=== PATIENT | female | born 1980 | race Caucasian/White ===

== ENCOUNTER 2017-12-29 07:36 | Inpatient (IN) | payer MEDICAID ==
[2017-12-29] MEDS ORDERED: METHYLERGONOVINE 0.2 MG INJ IM ×2 (08:00→10:30)
[2017-12-29] MEDS ORDERED: OXYTOCIN 30 UNITS/LR 500 ML IV ×2 (08:00→10:30)
[2017-12-29] MEDS ORDERED: MISOPROSTOL 200 MCG TAB PR ×2 (08:00→10:30)
[2017-12-29] MEDS ORDERED: CARBOPROST 250 MCG INJ IM ×2 (08:00→10:30)
[2017-12-29 08:14] LABS: ADD MAN DIFF? NO
[2017-12-29] MEDS: LACTATED RINGER'S 1,000 ML IV (08:15)
[2017-12-29 08:21] LABS: WHITE BLOOD COUNT 6.6 10^3/ul (4.8-10.8)
[2017-12-29 08:21] LABS: BASOPHILS % 0.3 % (0.0-2.0); EOSINOPHILS % 0.6 % (0.0-7.0); HEMATOCRIT 37.6 % (37.0-47.0); HEMOGLOBIN 12.8 g/dl (12.0-16.0); LYMPHOCYTES # 2.1 10^3/ul (0.8-2.9); MEAN CORPUSCULAR HEMOGLOBIN 30.8 pg (29.0-33.0); MEAN CORPUSCULAR VOLUME 90.4 fl (82.0-101.0); MEAN PLATELET VOLUME 12.2 fl (7.4-10.4); MONOCYTE # 0.5 10^3/ul (0.3-0.9); MONOCYTES % 8.2 % (0.0-11.0); NEUTROPHIL # 3.9 10^3/ul (1.6-7.5); NEUTROPHILS % 59.4 % (39.0-77.0); PLATELET COUNT 136 10^3/UL (140-415); RED BLOOD COUNT 4.16 10^6/ul (4.20-5.40)
[2017-12-29] MEDS ORDERED: METOCLOPRAMIDE 10 MG INJ IM (08:30)
[2017-12-29] MEDS: ONDANSETRON 4 MG INJ IV (08:42)
[2017-12-29] MEDS: FAMOTIDINE 20 MG INJ IV (08:42)
[2017-12-29 08:46] LABS: INR 0.88; PT RATIO 0.9
[2017-12-29 08:47] LABS: PARTIAL THROMBOPLASTIN TIME 26.5 Sec (25.0-35.0)
[2017-12-29 09:17] LABS: HEPATITIS B SURFACE ANTIGEN NEGATIVE (NEGATIVE)
[2017-12-29] MEDS ORDERED: morphine SULFATE/PF (10 MG/10 ML) INJ (09:19)
[2017-12-29] MEDS ORDERED: BUPIVACAINE 0.75%/DEXT (SPINAL) 2 ML INJ (09:19)
[2017-12-29] MEDS ORDERED: EPINEPHrine 1 MG INJ (09:19)
[2017-12-29] MEDS ORDERED: OXYTOCIN 10 UNIT INJ (09:19)
[2017-12-29] MEDS: METOCLOPRAMIDE 10 MG INJ IV (09:20)
[2017-12-29] MEDS: CEFAZOLIN 2 GM/50 ML (PMX) 50 ML IV (11:18)
[2017-12-29] MEDS ORDERED: ZOLPIDEM 5 MG TAB PO (11:30)
[2017-12-29] MEDS ORDERED: FENTAnyl 50 MCG/ML VIAL IV ×2 (11:30)
[2017-12-29] MEDS ORDERED: HYDROmorphONE 0.5 MG/0.5 ML SYG IV ×2 (11:30)
[2017-12-29] MEDS ORDERED: DIPHENHYDRAMINE 50 MG INJ IV ×2 (11:30)
[2017-12-29] MEDS ORDERED: KETOROLAC 30 MG INJ IV (11:30)
[2017-12-29] MEDS ORDERED: NALOXONE (0.4 MG/ML) INJ IV ×3 (11:30)
[2017-12-29] MEDS ORDERED: ONDANSETRON 4 MG INJ IV ×2 (11:30)
[2017-12-29] MEDS ORDERED: HYDROmorphONE 1 MG/5 ML IV SYRINGE IV ×3 (11:30)
[2017-12-29] MEDS: IBUPROFEN 600 MG TAB PO ×2 (12:00→15:07)
[2017-12-29] MEDS: OXYTOCIN 30 UNITS/LR 500 ML IV (12:41)
[2017-12-29] MEDS: LANOLIN 7 GM TUBE TOP (17:31)
[2017-12-29 20:01] LABS: RAPID PLASMA REAGIN NONREACTIVE (NR)
[2017-12-29] MEDS: SENNA/DOCUSATE NA (8.6MG/50MG) TAB PO (21:52)
[2017-12-30] MEDS: LACTATED RINGER'S 1,000 ML IV ×2 (00:22→07:58)
[2017-12-30] MEDS: IBUPROFEN 600 MG TAB PO ×4 (06:00→18:00)
[2017-12-30] MEDS: KETOROLAC 30 MG INJ IV (08:00)
[2017-12-30] MEDS: SENNA/DOCUSATE NA (8.6MG/50MG) TAB PO ×2 (09:51→21:20)
[2017-12-30 10:27] LABS: ADD MAN DIFF? NO
[2017-12-30 10:35] LABS: WHITE BLOOD COUNT 11.2 10^3/ul (4.8-10.8)
[2017-12-30 10:35] LABS: BASOPHILS % 0.2 % (0.0-2.0); EOSINOPHILS % 0.1 % (0.0-7.0); HEMATOCRIT 32.9 % (37.0-47.0); HEMOGLOBIN 11.1 g/dl (12.0-16.0); LYMPHOCYTES # 1.5 10^3/ul (0.8-2.9); LYMPHOCYTES % 13.8 % (15.0-51.0); MEAN CORPUSCULAR HGB CONC 33.7 g/dl (32.0-37.0); MEAN CORPUSCULAR VOLUME 88.9 fl (82.0-101.0); MEAN PLATELET VOLUME 12.1 fl (7.4-10.4); MONOCYTE # 0.8 10^3/ul (0.3-0.9); MONOCYTES % 7.5 % (0.0-11.0); NEUTROPHIL # 8.7 10^3/ul (1.6-7.5); PLATELET COUNT 137 10^3/UL (140-415); RED CELL DISTRIBUTION WIDTH 13.2 % (11.5-14.5)
[2017-12-30] MEDS: OXYCODONE/ACETAMINOPHEN (5/325) TAB PO (21:20)
[2017-12-31] MEDS: IBUPROFEN 600 MG TAB PO ×5 (00:24→23:58)
[2017-12-31] MEDS: FERROUS SULFATE (EC) 325 MG TAB PO ×2 (09:52→21:31)
[2017-12-31] MEDS: SENNA/DOCUSATE NA (8.6MG/50MG) TAB PO ×2 (09:52→21:31)
[2017-12-31] MEDS: OXYCODONE/ACETAMINOPHEN (5/325) TAB PO (21:31)
[2018-01-01] MEDS: IBUPROFEN 600 MG TAB PO ×3 (05:32→17:34)
[2018-01-01] MEDS: SENNA/DOCUSATE NA (8.6MG/50MG) TAB PO (09:23)
[2018-01-01] MEDS: OXYCODONE/ACETAMINOPHEN (5/325) TAB PO (09:23)
[2018-01-01] MEDS: FERROUS SULFATE (EC) 325 MG TAB PO (09:23)
== END 2018-01-01 18:05 | disposition home or self-care (01) | DRG 766 ==
LOC: L-D 07:36 → PP1 12:27
PROVIDERS: Obstetrics & Gynecology
PROC: 10D00Z1 Extraction of Products of Conception, Low, Open Approach (ICD-10-PCS; principal; 2017-12-30)
PROC: 0UB70ZZ Excision of Bilateral Fallopian Tubes, Open Approach (ICD-10-PCS; 2017-12-30)
DX: O34.211 Maternal care for low transverse scar from previous cesarean delivery (principal); Z37.0 Single live birth; Z3A.39 39 weeks gestation of pregnancy; Z30.2 Encounter for sterilization
CPT/HCPCS: 85025; 85610; 85730; 86592; 86850; 86900; 86901; 87340; 88302; 99464